=== PATIENT | male | born 1985 | race Caucasian/White ===

== ENCOUNTER 2016-08-29 14:57 | Emergency (ER) | payer MEDICAID, OTHER ==
[~2016-08-29] VITALS: Ht 172.7 cm; Wt 77.1 kg
[2016-08-29] MEDS ORDERED: CLON1TAB PO (15:11)
[2016-08-29] MEDS ORDERED: VYVA40CA3 PO (15:11)
[2016-08-29 15:58] VITALS: BP 144/86
--- NOTE | 2016-08-29 16:09 | REP ---
INGUINAL ULTRASOUND: Real-time sonographic evaluation of the inguinal region is performed to evaluate for possible inguinal hernia. There is a small right inguinal hernia present with peritoneal fat entering the internal ring with a Valsalva maneuver. There is no bowel. The hernia is reducible. There is no hernia in the left inguinal region. IMPRESSION: Small reducible right inguinal hernia containing fat. This is only seen with Valsalva maneuver. Signed by Fabricio Felder MD 08/29/2016 05:42 P
== END 2016-08-29 16:06 | disposition home or self-care (01) ==
LOC: M ED 15:39
DX: K40.90 Unilateral inguinal hernia, without obstruction or gangrene, not specified as recurrent (principal); F90.9 Attention-deficit hyperactivity disorder, unspecified type; F99 Mental disorder, not otherwise specified; Z79.899 Other long term (current) drug therapy

== ENCOUNTER → 2016-09-28 | Day surgery (SDC) | payer OTHER ==
[~2016-09-28] VITALS: Ht 172.7 cm; Wt 77.1 kg
[~2016-09-28] MED LIST: BUPIVACAINE/EPIN 0.25% 30 ML VIAL As Ordered ONE; CLON1TAB PO; DESFLURANE 240 ML INHALANT As Ordered ONE; GLYCOPYRROLATE INJ 0.2 MG/ML 2 ML VIAL As Ordered ONE; HYDROmorphone HCL 2 MG/ML 1ML VIAL (J1170) As Ordered ONE; LIDOCAINE 2% INJ 100 MG/5 ML SDV (FOR ANES.) As Ordered ONE; LR 1,000 ML IV ONE; LR 1,000 ML IV SCH; METOCLOPRAMIDE INJ 10MG/2ML VIAL (J2765) As Ordered ONE; METOCLOPRAMIDE INJ 10MG/2ML VIAL (J2765) IV ONE; MIDAZOLAM INJ 2 MG/2 ML VIAL (J2250) As Ordered ONE; MORPHINE 2 MG/ML 1ML SYRINGE IV PRN; NEOSTIGMINE 1MG/ML 5 ML SYRINGE (J2710) As Ordered ONE; NORCO, ANEXSIA 5/325MG TABLET (HYDROcodone/ACETAMINOPHEN) PO PRN; ONDANSETRON 4MG/2ML VIAL (J2405) As Ordered ONE; ONDANSETRON 4MG/2ML VIAL (J2405) IV PRN; PROPOFOL 200 MG/20 ML VIAL As Ordered ONE; ROCURONIUM BROMIDE 50 MG/5 ML VIAL As Ordered ONE; VYVA40CA3 PO; diazePAM 5 MG TAB PO PRN; ePHEDrine SULFATE 25 MG/5 ML(5MG/ML) SYRINGE As Ordered ONE; fentaNYL 100 MCG/2 ML INJECTION (J3010) IV PRN; fentaNYL 250 MCG/5 ML INJECTION (J3010) As Ordered ONE
[2016-09-28] MEDS: PERCOCET 5MG/325MG TAB PO PRN ×2 (15:10→15:50)
[2016-09-28 17:26] VITALS: BP 112/56
--- NOTE | 2016-10-11 11:48 | RO ---
DATE OF PROCEDURE: 09/28/2016 PREOPERATIVE DIAGNOSIS: Right inguinal hernia. POSTOPERATIVE DIAGNOSIS: Right inguinal hernia. PROCEDURE: Robotic-assisted right inguinal hernia repair. SURGEON: Dr. Fabricio Méndez. WIRE FRAME MAKER: Dr Fritz. ANESTHESIA: General. ESTIMATED BLOOD LOSS: 10 COMPLICATIONS: None. INDICATIONS FOR PROCEDURE: The patient is a 31-year-old male who has had a previous left inguinal hernia repair done laparoscopically now presents with a right inguinal hernia. His options at this time are robotic-assisted repair versus open repair. Because of the previous laparoscopic tap procedure, he cannot have it done that way laparoscopically again. He requested to not have this done open. Therefore I have been asked to the complete this robotically. After careful discussion of the procedure with the patient, risks were discussed not limited but including bleeding, infection, hernia recurrence, hernia formation, damage to surrounding structures, need for further surgery, the patient was agreeable and signed consent. PROCEDURE: The patient was brought back to operating room seven. After sufficient sedation, the abdomen sterilely prepped and draped. The Oliva catheter was placed. Next time-out was done to confirm proper patient and proper procedure. A stab incision made in left lower quadrant at Craig's point. Veress needle was inserted and the abdomen was insufflated to 15 mmHg. A 5 mm OptiView port was used at the umbilicus to gain access to the abdomen. Once the abdomen was entered, an 8 mm robotic port was placed in the right midabdomen followed by another 8 mm port in the left mid abdomen and then a 5 mm port at the umbilicus was removed and replaced with the camera port for the robot. Once this was all completed, the patient was placed in reverse Trendelenburg position. The robot was then docked to the ports and instruments were placed. Following this, there were some adhesions in the lower pelvis that were likely secondary to his previous laparoscopic repair. These were taken down gently using the robot. Once that was completed, the peritoneum was entered in the right lower quadrant. Incision was created horizontally and the preperitoneal space was entered. The preperitoneal space was then dissected bluntly using the robot all the way medially and laterally. The hernia sac was encountered and dissected free posteriorly and laterally as well. There also was a cord lipoma. This was also gently resected free from all cord structures and placed into the preperitoneal space. Once the dissection was free from the pubic symphysis all the way laterally and posteriorly so that all the cord structures were easily identified, Bard 3-D Max large mesh was rolled up, placed inside the preperitoneal space on the right side. Mesh was tacked in place in the pubic symphysis using one interrupted #0 Vicryl suture through the mesh and through the pubic symphysis. Once that was then placed, the mesh was carefully unfolded. It laid flat nicely over top of the inguinal canal and all the cord structures. The cord lipoma was placed on top of the mesh. The peritoneal defect was then closed over top of the mesh using a running Stratafix suture. Once this was completed, the abdomen was desufflated. Skin incisions closed with #4-0 Vicryl subcuticular sutures. The abdomen was cleaned and dried. Steri-Strips, 4x4 and tape were applied thus ending procedure.
== END ==
LOC: M SDC 07:53
PROVIDERS: ATTEND Surgery
DX: K40.90 Unilateral inguinal hernia, without obstruction or gangrene, not specified as recurrent (principal); J45.909 Unspecified asthma, uncomplicated; F41.9 Anxiety disorder, unspecified; F90.9 Attention-deficit hyperactivity disorder, unspecified type; F32.9 Major depressive disorder, single episode, unspecified; Z79.899 Other long term (current) drug therapy; Z87.891 Personal history of nicotine dependence
CPT/HCPCS: 49650; C1781

== ENCOUNTER 2016-12-10 08:41 | Emergency (ER) | payer OTHER ==
[~2016-12-10] VITALS: Ht 172.7 cm; Wt 77.2 kg
[~2016-12-10 08:41] MED LIST changes: -BUPIVACAINE/EPIN 0.25% 30 ML VIAL As Ordered ONE; -DESFLURANE 240 ML INHALANT As Ordered ONE; -GLYCOPYRROLATE INJ 0.2 MG/ML 2 ML VIAL As Ordered ONE; -HYDROmorphone HCL 2 MG/ML 1ML VIAL (J1170) As Ordered ONE; -LIDOCAINE 2% INJ 100 MG/5 ML SDV (FOR ANES.) As Ordered ONE; -LR 1,000 ML IV ONE; -LR 1,000 ML IV SCH; -METOCLOPRAMIDE INJ 10MG/2ML VIAL (J2765) As Ordered ONE; -METOCLOPRAMIDE INJ 10MG/2ML VIAL (J2765) IV ONE; -MIDAZOLAM INJ 2 MG/2 ML VIAL (J2250) As Ordered ONE; -MORPHINE 2 MG/ML 1ML SYRINGE IV PRN; -NEOSTIGMINE 1MG/ML 5 ML SYRINGE (J2710) As Ordered ONE; -NORCO, ANEXSIA 5/325MG TABLET (HYDROcodone/ACETAMINOPHEN) PO PRN; -ONDANSETRON 4MG/2ML VIAL (J2405) As Ordered ONE; -ONDANSETRON 4MG/2ML VIAL (J2405) IV PRN; -PROPOFOL 200 MG/20 ML VIAL As Ordered ONE; -ROCURONIUM BROMIDE 50 MG/5 ML VIAL As Ordered ONE; -diazePAM 5 MG TAB PO PRN; -ePHEDrine SULFATE 25 MG/5 ML(5MG/ML) SYRINGE As Ordered ONE; -fentaNYL 100 MCG/2 ML INJECTION (J3010) IV PRN; -fentaNYL 250 MCG/5 ML INJECTION (J3010) As Ordered ONE
[2016-12-10] MEDS ORDERED: AMBI10TA PO (08:46)
[2016-12-10] MEDS ORDERED: NORCO, ANEXSIA 5/325MG TABLET (HYDROcodone/ACETAMINOPHEN) PO ONE (09:45)
[2016-12-10] MEDS ORDERED: ADACEL/BOOSTRIX VACCINE (DIPHTH/PERTUSS/ACELL/TETANUS)0.5ML SYR (90715) IM ONE (10:00)
[2016-12-10] MEDS ORDERED: MEDR4PAK PO (10:12)
[2016-12-10] MEDS ORDERED: CLEO300C2 PO (10:12)
[2016-12-10] MEDS ORDERED: NORCOTAB PO (10:12)
[2016-12-10 10:22] VITALS: BP 142/68
== END 2016-12-10 10:29 | disposition home or self-care (01) ==
LOC: M ED 08:41
DX: S01.512A Laceration without foreign body of oral cavity, initial encounter (principal); S09.93XA Unspecified injury of face, initial encounter; K08.9 Disorder of teeth and supporting structures, unspecified; Y04.0XXA Assault by unarmed brawl or fight, initial encounter; Y92.410 Unspecified street and highway as the place of occurrence of the external cause; Y93.9 Activity, unspecified; Y99.8 Other external cause status; F41.9 Anxiety disorder, unspecified; F90.0 Attention-deficit hyperactivity disorder, predominantly inattentive type

== ENCOUNTER 2017-01-02 11:54 | Emergency (ER) | payer OTHER ==
[~2017-01-02] VITALS: Ht 175.3 cm; Wt 75.0 kg
[~2017-01-02 11:54] MED LIST changes: +AMBI10TA PO; +CLEO300C2 PO; +MEDR4PAK PO; +NORCOTAB PO
[2017-01-02 11:55] VITALS: BP 128/72
[2017-01-02] MEDS ORDERED: ELIM5CRE2 TOP (12:47)
[2017-01-02] MEDS ORDERED: PRED20TA PO (12:47)
== END 2017-01-02 12:54 | disposition home or self-care (01) ==
LOC: M ED 11:54
DX: L30.9 Dermatitis, unspecified (principal); Z79.899 Other long term (current) drug therapy

== ENCOUNTER 2017-03-17 19:14 | Emergency (ER) | payer OTHER ==
[~2017-03-17] VITALS: Ht 177.8 cm; Wt 76.4 kg
[~2017-03-17 19:14] MED LIST changes: +ELIM5CRE2 TOP; +PRED20TA PO
[2017-03-17 19:20] VITALS: BP 132/71
[2017-03-17] MEDS ORDERED: NORCO, ANEXSIA 5/325MG TABLET (HYDROcodone/ACETAMINOPHEN) PO ONE (20:30)
[2017-03-17] MEDS ORDERED: LIDOCAINE W/EPINEPHRINE 1% 20ML VIAL SC ONE (21:45)
[2017-03-17] MEDS ORDERED: BUPIVACAINE HCL 0.5% 10 ML VIAL SC ONE (21:45)
--- NOTE | 2017-03-18 03:00 | REP ---
Clinical: Trauma. Technique: Axial noncontrast images from the skull base to the thoracic inlet with coronal and sagittal re-formations Findings: Normal alignment and lordosis is maintained. Cervical vertebral bodies including transverse processes and spinous processes are intact and there is no evidence for acute fracture / compression injury or subluxation. Mild endplate irregularity at the C2-3 and C3-4 levels suggests changes related to Schmorl's nodes, and no further significant degenerative changes are noted. Spinal canal is patent. Posterior elements are intact. Paravertebral soft tissues are normal. Impression: Mild degenerative changes involving the C2-3 and C3-4 end plates. No evidence for acute pathology or trauma/injury. Signed by Emery Brody MD 03/18/2017 02:51 A
--- NOTE | 2017-03-18 03:04 | REP ---
Clinical: Trauma. Technique: Axial noncontrast images through the facial bones to include the mandible with coronal and sagittal re-formations. Findings: Moderate right facial and periorbital soft tissue swelling noted. The osseous structures are intact and there is no evidence for fracture or dislocation. Specifically, the bilateral zygomatic arches, nasal bones, and mandible including bilateral temporomandibular joints appear normal and symmetric. Chronic deviation of the nasal septum towards the right side noted. The sinuses and mastoid air cells are all well aerated and clear without fluid level to suggest occult trauma. The bilateral orbits including the globes and intraconal contents appear symmetric and without acute injury. Impression: Moderate right facial and periorbital soft tissue swelling. No evidence for acute fracture / dislocation. Orbits are intact. Signed by Emery Brody MD 03/18/2017 02:55 A
--- NOTE | 2017-03-18 03:06 | REP ---
Clinical: Trauma . Comparison: None . Findings: The ventricles, sulci, and cisterns are normal in position and appearance. Felder-white differentiation is maintained. No acute intracranial hemorrhage, mass/mass effect, pathology or trauma/injury. No evidence for acute infarction. No extra-axial fluid collection. Calvarium is intact. Paranasal sinuses and mastoid air cells are clear. Right periorbital/facial swelling noted. Impression: Right periorbital/facial swelling. No evidence for acute intracranial pathology or trauma/injury. Signed by Emery Brody MD 03/18/2017 02:57 A
== END 2017-03-18 01:36 | disposition home or self-care (01) ==
LOC: M ED 19:14
DX: S01.81XA Laceration without foreign body of other part of head, initial encounter (principal); Y04.0XXA Assault by unarmed brawl or fight, initial encounter; Y92.019 Unspecified place in single-family (private) house as the place of occurrence of the external cause; Y93.89 Activity, other specified; Y99.8 Other external cause status; F10.929 Alcohol use, unspecified with intoxication, unspecified; Z79.52 Long term (current) use of systemic steroids; Z79.899 Other long term (current) drug therapy

== ENCOUNTER 2017-03-24 10:26 | Emergency (ER) | payer OTHER ==
[~2017-03-24] VITALS: Ht 170.2 cm; Wt 75.0 kg
[2017-03-24 10:27] VITALS: BP 128/67
== END 2017-03-24 11:07 | disposition home or self-care (01) ==
LOC: M ED 10:36
DX: Z48.02 Encounter for removal of sutures (principal); Z79.899 Other long term (current) drug therapy

== ENCOUNTER 2018-02-16 19:41 | Emergency (ER) | payer SELFPAY, OTHER ==
[2018-02-16] MEDS: NS 1,000 ML IV ×2 (20:00→21:15)
[2018-02-16 20:47] LABS: BASO % 0.4 % (0.0-1.0); EOS % 0.1 % (0.0-3.0); HEMATOCRIT 53.9 % (42.0-52.0); HEMOGLOBIN 17.7 g/dl (13.5-17.5); IMMATURE GRANULOCYTE % 0.2 % (0-3.0); LYMPH # 0.7 10^3/uL (1.5-4.5); LYMPH % 7.1 % (24.0-44.0); MEAN CORPUSCULAR HEMOGLOBIN 28.7 pg (27.0-33.0); MEAN CORPUSCULAR HGB CONC 32.8 g/dl (32.0-36.5); MEAN CORPUSCULAR VOLUME 87.4 fl (80.0-96.0); MONO # 0.2 10^3/uL (0.0-0.8); MONO % 2.3 % (0.0-5.0); NEUTROPHILS # 8.5 10^3/uL (1.8-7.7); NEUTROPHILS % 89.9 % (36.0-66.0); PLATELET COUNT, AUTOMATED 329 10^3/uL (150-450); RED BLOOD COUNT 6.17 10^6/uL (4.30-6.10); RED CELL DISTRIBUTION WIDTH 12.5 % (11.5-14.5); WHITE BLOOD COUNT 9.4 10^3/uL (4.0-10.0)
[2018-02-16 21:10] LABS: ACETAMINOPHEN LEVEL < 2.0 UG/ML (10.0-30.0); ALBUMIN 4.8 GM/DL (3.2-5.2); ALBUMIN/GLOBULIN RATIO 1.02 (1.00-1.93); ALKALINE PHOSPHATASE 50 U/L (45-117); ALT/SGPT 36 U/L (12-78); ANION GAP 13 MEQ/L (8-16); AST/SGOT 35 U/L (7-37); BILIRUBIN,DIRECT 0.1 MG/DL (0.0-0.2); BILIRUBIN,TOTAL 0.4 MG/DL (0.2-1.0); BLOOD UREA NITROGEN 14 MG/DL (7-18); CALCIUM LEVEL 8.6 MG/DL (8.5-10.1); CARBON DIOXIDE LEVEL 24 MEQ/L (21-32); CHLORIDE LEVEL 105 MEQ/L (98-107); ETHYL ALCOHOL (ETHANOL) 0.161 % (0.000-0.010); GLOMERULAR FILTRATION RATE > 60.0 (>60); GLUCOSE, FASTING 88 MG/DL (70-100); POTASSIUM SERUM 4.5 MEQ/L (3.5-5.1); SALICYLATE LEVEL < 1.7 MG/DL (5.0-30.0); SODIUM LEVEL 142 MEQ/L (136-145); TOTAL PROTEIN 9.5 GM/DL (6.4-8.2)
[2018-02-16 22:17] LABS: AMPHETAMINES LEVEL URINE NEGATIVE (NEGATIVE); BARBITURATES URINE NEGATIVE (NEGATIVE); BENZODIAZEPINES URINE NEGATIVE (NEGATIVE); CANNABINOIDS URINE NEGATIVE (NEGATIVE); COCAINE METABOLITE URINE NEGATIVE (NEGATIVE); METHADONE URINE NEGATIVE (NEGATIVE); OPIATES URINE NEGATIVE (NEGATIVE); PHENCYCLIDINE URINE NEGATIVE (NEGATIVE)
== END 2018-02-16 23:57 | disposition home or self-care (01) ==
LOC: M ED 19:41
DX: F16.10 Hallucinogen abuse, uncomplicated (principal); F10.120 Alcohol abuse with intoxication, uncomplicated; F41.9 Anxiety disorder, unspecified; F32.9 Major depressive disorder, single episode, unspecified; G47.9 Sleep disorder, unspecified; M41.9 Scoliosis, unspecified; K40.90 Unilateral inguinal hernia, without obstruction or gangrene, not specified as recurrent; Z79.899 Other long term (current) drug therapy
CPT/HCPCS: G0480

== ENCOUNTER → 2018-07-15 | Outpatient (REF) ==
[~2018-07-15] MED LIST changes: -CLON1TAB PO; +CLON1TAB8 PO
== END ==
LOC: M LAB 10:22
DX: Z02.89 Encounter for other administrative examinations